=== PATIENT | female | born 1995 | race Caucasian/White ===

== ENCOUNTER 2022-02-08 11:12 | Emergency (ER) | payer SELFPAY ==
[~2022-02-08] VITALS: Ht 177.8 cm; Wt 93.2 kg
[2022-02-08 11:12] VITALS: BP 147/79
[2022-02-08] MEDS ORDERED: LIDOCAINE 1%/EPI 1:100,000 20 ML VIAL. INJ ONE (11:30)
[2022-02-08] MEDS ORDERED: CEPH500T PO (11:47)
--- NOTE | 2022-02-08 11:48 | ED.ADGEN ---
Past Medical History Past Surgical History: Other Additional Past Surgical Histo: RIGHT ANKLE SURGERY General Adult EDM: Chief Complaint: PUNCTURE WOUND HPI: HPI: Patient is a 26 year old female coming in for a puncture wound to her left calf. Patient states the wind caught still door of the truck and it went into her leg. Patient discern because the car is old and has some rest on the door but does not think there is any in the corner that went in. Her tetanus is up-to-date. No other injuries. Review of Systems: Review of Systems: All other systems within normal limits except for as noted in the HPI Current Medications: Current Medications Medications (Trade) Dose Ordered Sig/Berhane Start Time Stop Time Status Last Admin Dose Admin Lidocaine/ Epinephrine (LIDOCAINE 1%-EPI 1:100,000 Multi-Dose) 20 ml 1X ONCE 02/08/22 11:30 02/08/22 11:31 DC Allergies: Allergies: Allergies Coded Allergies Type Severity Reaction Last Updated Verified No Known Drug Allergies 02/08/22 No Physical Exam: PE: Constitutional: Well developed, well nourished, no acute distress, non-toxic appearance. [] HENT: Normocephalic, atraumatic, bilateral external ears normal, nose normal. [] Eyes: PERRLA, conjunctiva normal, no discharge. [] Neck: No rigidity, supple, no stridor. [] Cardiovascular: Regular rate and rhythm, brisk cap refill [] Lungs & Thorax: Non labored symmetric respirations, no tachypnea or respiratory distress [] Abdomen: Soft, nondistended. Skin: Warm, dry, no erythema, no rash. Approximately 3 cm laceration to left calf with exposed adipose tissue [] Back: Unremarkable Extremities: No deformities, range of motion grossly intact, no lower extremity edema [] Neurologic: Alert and oriented X 3, no focal deficits noted. [] Psychologic: Affect normal, judgement normal, mood normal. [] Current Patient Data: Vital Signs: Vital Signs Date Time Temp Pulse Resp B/P (MAP) Pulse Ox O2 Delivery O2 Flow Rate FiO2 02/08/22 11:12 98.0 90 20 147/79 (101) 100 Room Air 98.0 EKG: EKG: [] Heart Score: C/O Chest Pain: No Risk Factors: Risk Factors: DM, Current or recent (<one month) smoker, HTN, HLP, family history of CAD, obesity. Risk Scores: Score 0 - 3: 2.5% MACE over next 6 weeks - Discharge Home Score 4 - 6: 20.3% MACE over next 6 weeks - Admit for Clinical Observation Score 7 - 10: 72.7% MACE over next 6 weeks - Early Invasive Strategies Radiology/Procedures: Radiology/Procedures: Patient was prepped and draped in normal fashion, wound irrigated and cleansed with normal saline. The 4.5 cm wound was anesthetized with lidocaine 1% with epinephrine. Depth of wound was examined and no foreign bodies found. Wound was approximated with 8 lucila placed without complication. Wound was then dressed a nonadherent bandage [] Course & Med Decision Making: Course & Med Decision Making Pertinent Labs and Imaging studies reviewed. (See chart for details) [] Dragon Disclaimer: Dragon Disclaimer: This electronic medical record was generated, in whole or in part, using a voice recognition dictation system. Departure Departure Impression: Primary Impression: Laceration of calf Disposition: HOME / SELF CARE / HOMELESS Condition: IMPROVED Patient Instructions: Staple Wound Closure, [id number] Additional Instructions: Return to primary care or emergency department for staple removal in 10 to 14 days Scripts Cephalexin (CEPHALEXIN) 500 Mg Tablet 1 TAB PO TID for antibiotic for 7 Days, #21 TAB Prov: ROLDAN GRACE MD 02/08/22 ROLDAN GRACE MD Feb 08, 2022 11:48
== END 2022-02-08 12:00 | disposition home or self-care (01) ==
LOC: ER 11:12
DX: S81.812A Laceration without foreign body, left lower leg, initial encounter (principal); W22.8XXA Striking against or struck by other objects, initial encounter; Y93.89 Activity, other specified; Y92.89 Other specified places as the place of occurrence of the external cause; Y99.8 Other external cause status
CPT/HCPCS: 12002; 99283; J3490